=== PATIENT | male | born 1985 | race American Indian/Alaskan Native ===

== ENCOUNTER 2019-02-05 13:52 | Emergency (ER) | payer SELFPAY ==
[2019-02-05 14:28] VITALS: BP 145/99
--- NOTE | 2019-02-05 14:28 | Emergency Department Report ---
Blank Doc - Documentation Documentation: 34 y o male was cutting trees earlier today and accidently used the saw graze against left wrist some bleeding, well controlled, tetanus not up to date [facility] eval
[2019-02-05] MEDS ORDERED: BOOSTRIX IM ONE (16:03)
--- NOTE | 2019-02-05 16:10 | Emergency Department Report ---
- General Chief Complaint: Laceration/Recheck/Suture Stated Complaint: CUT ON (L) WRIST Time Seen by Provider: 02/05/19 14:19 Source: patient Mode of arrival: Ambulatory Limitations: No Limitations - History of Present Illness Initial Comments: 34 y o male was cutting trees earlier today and accidently used the saw graze against left wrist some bleeding, well controlled, tetanus not up to date -: This afternoon Time: 13:00 Extremity Location: Left: Wrist Place: work Patient Tetanus UTD: No Context: accidental, sharp object use, power tool use - Related Data Allergies Allergy/AdvReac Type Severity Reaction Status Date / Time No Known Allergies Allergy Verified 02/05/19 13:55 ED Review of Systems ROS: Stated complaint: CUT ON (L) WRIST Other details as noted in HPI ED Past Medical Hx - Past Medical History Previous Medical History?: No - Surgical History Past Surgical History?: No - Social History Smoking Status: Never Smoker Substance Use Type: None ED Physical Exam - General Limitations: No Limitations - Expanded Upper Extremity Exam Left Hand Wrist exam: Present: full ROM, laceration (1cm), other (Lipitor digitorum profundus intact flexor pollicis intact) Neuro motor exam: Present: wrist extension intact, thumb opposition intact, thumb IP flexion intact, thumb adduction intact, fingers 2-5 abduction intact Neurosensory exam: Present: 2-point discrimination, radial nerve intact, ulnar nerve intact, median nerve intact Vascular: Present: normal capillary refill, radial pulse. Absent: vascular compromise ED Course Vital Signs 02/05/19 02/05/19 14:26 14:54 Temperature 97.6 F Pulse Rate 97 H Respiratory 20 15 Rate Blood Pressure 145/99 O2 Sat by Pulse 100 Oximetry - Laceration /Wound Repair Left Plantar Wrist Wound Location: upper extremity Wound Length (cm): 1 Wound's Depth, Shape: superficial Wound Explored: no foreign body removed Betadine Prep?: Yes Wound Repaired With: Dermabond Sterile Dressing Applied?: Yes Progress: Patient tolerated well Critical care attestation.: If time is entered above; I have spent that time in minutes in the direct care of this critically ill patient, excluding procedure time. ED Disposition Clinical Impression: Laceration of wrist Qualifiers: Encounter type: initial encounter Laterality: left Qualified Code(s): S61.512A - Laceration without foreign body of left wrist, initial encounter Disposition: DC-01 TO HOME OR SELFCARE Is pt being admited?: No Does the pt Need Aspirin: No Condition: Stable Instructions: Skin Adhesive Care (ED), Laceration (ED) Additional Instructions: Tylenol or ibuprofen for pain management. He received a tetanus shot this should be good for 5 years. These keep wound clean and dry and wrapped while at work. Return back to the emergency room because any signs of infection such as purulent discharge swelling redness or fever. Referrals: GURDEEP GRAY MD [Primary Care Provider] - 3-5 Days Forms: Work/School Release Form(ED)
[2019-02-05] MEDS ORDERED: IBUPROFEN PO ONE (16:12)
== END 2019-02-05 16:31 | disposition home or self-care (01) ==
LOC: ED 13:52
DX: S61.512A Laceration without foreign body of left wrist, initial encounter (principal); W26.8XXA Contact with other sharp object(s), not elsewhere classified, initial encounter; Y93.89 Activity, other specified; Y92.69 Other specified industrial and construction area as the place of occurrence of the external cause; Y99.8 Other external cause status
CPT/HCPCS: 90471; 90715